=== PATIENT | female | born 1970 | race Caucasian/White ===

== ENCOUNTER 2021-07-30 03:53 | Emergency (ER) | payer SELFPAY ==
[2021-07-30] MEDS ORDERED: VIBRAMYCIN100 MG PO (09:52)
[2021-07-30] MEDS ORDERED: NORCO 5-325 TA1 EACH PO (09:52)
== END 2021-07-30 10:25 | disposition home or self-care (01) ==
LOC: FER 03:53
DX: L02.01 Cutaneous abscess of face (principal); L03.211 Cellulitis of face; F17.210 Nicotine dependence, cigarettes, uncomplicated